=== PATIENT | female | born 1990 | race Caucasian/White ===

== ENCOUNTER 2017-06-25 00:32 | Inpatient (IN) ==
[~2017-06-25 00:32] MED LIST: Famotidine 20 MG/2 ML VIAL IVP PRN; Naloxone 0.4 MG/ML INJ IVP PRN
--- NOTE | 2017-06-25 01:10 | OB/GYN History & Physical ---
Date of Encounter: 06/25/17 Time of Encounter: 01:03 Assessment and Plan (1) 38 weeks gestation of Current visit: Yes Status: Acute at 38w 2d EGA with SROM at 2330 on 06/24/17 Cervical check /-2 per RN. FHT reassuring. No contractions currently Start PO cytotec 50 mcg for induction (2) SROM (spontaneous rupture of membranes) Current visit: Yes Status: Acute Induction of labor History of Present Illness Chief complaint: 38 2/7 week gestation HPI: Ms. Smith is a 26 year old female at 38w 2d EGA presenting to L&D with SROM. She reports a gush of clear fluid at 2330 on 06/24/17. She reports +FM. She denies having contractions. Admits to mild LE edema. Denies headaches, blurred vision, epigastric/RUQ pain, vaginal bleeding, or dysuria. No complications during . Blood type O+ GBS negative Rubella Immune Varicella Immune Hep B negative HIV negative [place]/Chl negative Past Med Surg Social Fam HX - Past Medical History Medical history: no medical history Psychiatric history: no psych history - Past Surgical History Surgical History: other - Social History Smoking Status: Never smoker Alcohol use: none Drug use: none - Family History Mother Hx Family Cardiac Disorders: No Hx Family Respiratory Disorders: No Hx Family Cancer: No Hx Family GI Disorders: No Hx Family Genitourinary Disorders: No Hx Family Endocrine Disorder: No Hx Family Musculoskeletal Disorders: No Hx Family Neuromuscular Disorders: No Hx Family Neurologic Disorders: No Hx Family HEENT Disorders: No Hx Family Autoimmune Disorders: No Hx Family Reproductive Disorders: No Hx Family Psychosocial Disorders: No Hx Family Medical Disorders: No (no history reported) Obstetrical History - Pregnancies : 1 - History/Complications History/Complications: None Medications and Allergies Colace 06/25/17 [History] Tablet 06/25/17 [History] 3 Allergy/AdvReac Type Severity Reaction Status Date / Time Amoxicillin Allergy Hives Verified 06/25/17 01:31 Review of System OB All systems PM: reviewed and no additional remarkable complaints except as stated Exam - Constitutional Constitutional: well developed, well nourished, no acute distress, average body habitus - HEENT HEENT: Normocephaly, Mucus Membranes Moist - Lungs Respiratory exam: CTAB - Cardiovascular Cardiovascular exam: RRR, +S1, +S2 - Abdomen Abdomen: Present: bowel sounds normal, gravid, non tender - Extremities Extremities exam: pedal edema (mild bilaterally) - Vulva Vulva: bilateral: normal - Cervix Cervix: Absent: lesion Dilation: 1 Effacement: 50 Station: -2 (per RN) - Comments Comments: FHT baseline 130's with moderate variability Results Result Diagrams: 06/25/17 01:10 All other labs normal. - VTE Reasons for not Prescribing Prophylaxis: Treatment not Indicated - Low risk for VTE - Attending Attestation I examined this patient and my medical decision-making was reviewed with the Resident Physician. I agree with the documented findings, disposition and treatment plan as described except to the extent set forth below.
[2017-06-25 01:23] LABS: Basophils % 0.3 %; Eosinophils # 0.2 K/mcL (0.0-0.6); Eosinophils % 1.5 %; Hematocrit 38.9 % (35.3-44.9); Hemoglobin 13.5 g/dL (11.5-15.4); Immature Granulocytes % 1.5 % (0-4); Lymphocytes # 1.6 K/mcL (0.6-4.6); Lymphocytes % 11.8 %; Mean Corpuscular HGB Conc 34.7 g/dL (31.6-35.5); Mean Corpuscular Hemoglobin 30.1 pg (28.0-33.3); Mean Corpuscular Volume 86.6 fL (83.0-100.0); Mean Platelet Volume 11.9 fL (9.4-12.4); Monocytes % 7.4 %; Neutrophils # 10.6 K/mcL (1.6-8.9); Platelet Count 136 K/mcL (140-400); Red Blood Count 4.49 M/mcL (3.82-4.97); Red Cell Distribution Width 13.8 % (11.5-14.5); Segmented Neutrophils % 77.5 %
[2017-06-25] MEDS ORDERED: miSOPROStol 100 MCG TABLET PO STA (02:05)
[2017-06-25] MEDS: Ringers Solution, Lactated 1,000 ML IVC SCH ×3 (02:44→14:19)
--- NOTE | 2017-06-25 05:45 | OB Labor Progress Note ---
Date of Encounter: 06/25/17 Time of Encounter: 05:43 Labor Progress Note - Subjective Subjective: Pt doing well. Reporting more pain with contractions now. I examined this patient and my medical decision-making was reviewed with the Resident Physician. I agree with the documented findings, disposition and treatment plan as described except to the extent set forth below. - Cervix Cervix: 3/100/-1 per RN - Heart Tones Heart Tones: Baseline 130's with moderate variability - [place]: CTX Q2-3 minutes - Plan Plan: Continue current management One dose of cytotec at 0215 Expect to start pitocin soon
--- NOTE | 2017-06-25 06:42 | Anesthesia Evaluation PreOp ---
Date of Encounter: 06/25/17 Time of Encounter: 06:41 - Past History Planned Operation: ann Cardiac History: Denies any Significant Hx Pulmonary History: Denies Any Significant HX OCEANOGRAPHY TEACHER History: Denies Any Significant HX Other Medical History: GERD Anesthesia History: No Prior Anesthetic Complications (no surgical history except wisdom teeth, no family history of anesthetic complications) : Yes (38, g1) Alcohol Use: none Drug use: none Medications and Allergies Colace 06/25/17 [History] Tablet 06/25/17 [History] 3 Allergy/AdvReac Type Severity Reaction Status Date / Time Amoxicillin Allergy Hives Verified 06/25/17 01:31 - Meds/Allergy Pre-op Review Medications Reviewed: Yes Allergies Reviewed: Yes Beta Blockers on Current Med List: No Anesthesia Results - Labs 06/25/17 01:10 Anesthesia Exam O2 Sat Height 1.6 m Height 1.6 m Weight 72.8 kg Weight 72.8 kg Height: 63 Weight: 72 - HEENT Pupil (Motor): Pupils equal Mallampati: II Teeth: Normal Oral Opening: Greater than 3 - OCEANOGRAPHY TEACHER LOC: Oriented OCEANOGRAPHY TEACHER Motor: Normal RUE, Normal LUE, Normal RLE, Normal LLE, Normal Face OCEANOGRAPHY TEACHER Sensory: Normal: RUE, LUE, RLE, LLE, Face - Cardiac Rhythm: Regular Murmur: None JVD: No Carotid Bruit: No - Pulmonary Breath Sounds: bilateral Clear Respiratory Effort: Symmetrical Anesthesia Assess/Plan ASA Score: 2 Modified Shanon Scale for Level of Consciousness: Cooperative, oriented, and tranquil Anesthetic Plan: Regional Monitoring Plan: Standard Monitors
[2017-06-25] MEDS ORDERED: Epidural Premix (fent/bupiv) 110 ML EP ONE ×3 (06:51→20:30)
[2017-06-25] MEDS ORDERED: EPHEDrine 50 MG/ML VIAL IVP PRN (06:56)
[2017-06-25] MEDS ORDERED: Epidural Premix (fent/bupiv) 110 ML EP SCH (07:00)
[2017-06-25] MEDS ORDERED: Oxytocin 20 units/ LR 1000 mL 20 UNIT/1,000 ML BAG IVC SCH ×2 (10:00→22:00)
--- NOTE | 2017-06-25 11:28 | OB Labor Progress Note ---
Date of Encounter: 06/25/17 Time of Encounter: 11:25 Labor Progress Note - Subjective Subjective: patient is comfortable s/p epidural - Vital Signs Vital Signs: VSS - Cervix Cervix: 8cm/100% - Heart Tones Heart Tones: CAT 1 - Plan Plan: cont pitocin, anticipate
--- NOTE | 2017-06-25 12:51 | Anesthesia Procedures ---
Date of Encounter: 06/25/17 Time of Encounter: 07:04 Procedures: Anesthesia - Epidural/Spinal Patient ID/Chart reviewed: Yes Patient examined: Yes OB Eval: Gestational age: term OB Eval: : 1 OB Eval: Dilated at (cm): 6 OB Eval: Contractions: Non-stressed pattern Consent Obtained: Yes Site Prep: Aseptic Technique, Sterile prep and drape, 0.5% Chlorhexidine/Alcohol Patient position: upright Local Anesthetic: Lidocaine 1% Amount of Local Anesthetic used: 2 Touhy Needle Gauge: 18 Touhy Needle Depth (cm): 5 Catheter Depth at Skin (cm): 9 Test Dose (1.5% Lido + Epi): Volume given (mls): 3 Test Dose Result: Negative Loading Dose: Other: 12ml from solution Loading Dose Administered: Thru Catheter Infusion Med: 0.125% Bupivacaine w/ 2 mcg/ml Fentanyl Infusion Rate (mls/hr): [address]: Tegaderm, Tape Interspace Used: L3-L4 Loss of Resistance (MARILYN): Yes (saline) Blood: No CSF: No Paresthesia: No Procedure: vss though out, FHR stable per RN's
--- NOTE | 2017-06-25 15:19 | OB Labor Progress Note ---
Date of Encounter: 06/25/17 Time of Encounter: 15:15 Labor Progress Note - Subjective Subjective: patient comfortable and doing well - Vital Signs Vital Signs: VSS - Cervix Cervix: fully dilated - Heart Tones Heart Tones: FHT CAT 1 - Plan Plan: cont to monitor labor, anticipate
--- NOTE | 2017-06-25 21:43 | OB/GYN Procedure Note ---
Delivery - Delivery Date: 06/25/17 Provider: Janes Parsons Intrapartum events: none Delivery augmentation: pitocin Delivery monitor: external FHT, external uterine Anesthesia: epidural Estimated Blood Loss: 150 - (s) A Delivery Date: 06/25/17 Delivery Time: 21:09 Presentation: vertex Position: OA Gender: Male Viability: Viable Pounds: 7 Ounces: 2 Weight Gram: 3.25 kg at 1 minute: 8 at 5 mins: 9 Shoulder Dystocia: not encountered Specimens collected: cord blood Placenta: spontaneous Cord: 3 umbilical vessels - Repair Episiotomy: none Laceration Description: Perineal - 2nd Degree - Complications Delivery complications: none - Disposition Mom disposition: stable in LDR Hardy disposition: stable in LDR - Comments Comments: 26 y/o now @ 38+2 weeks delivered a viable male infant @ 2109hrs. Infant delivered OA, no nuchal cord, 3 VC, APGARs 8/9, cord clamped and cut with infant handed over to nurses. Placenta delivered @ 2hrs. EBL 150. 2nd degree laceration repaired with 3-0 vicryl. Mother and doing well.
[2017-06-25] MEDS: Ibuprofen 600 MG TABLET PO PRN (23:51)
[2017-06-26 05:34] LABS: Basophils % 0.2 %; Eosinophils # 0.2 K/mcL (0.0-0.6); Eosinophils % 0.9 %; Hematocrit 28.7 % (35.3-44.9); Immature Granulocytes % 1.1 % (0-4); Lymphocytes # 1.7 K/mcL (0.6-4.6); Lymphocytes % 9.9 %; Mean Corpuscular HGB Conc 34.5 g/dL (31.6-35.5); Mean Corpuscular Hemoglobin 30.2 pg (28.0-33.3); Mean Corpuscular Volume 87.5 fL (83.0-100.0); Mean Platelet Volume 11.3 fL (9.4-12.4); Monocytes # 1.5 K/mcL (0.0-1.3); Monocytes % 8.5 %; Neutrophils # 13.6 K/mcL (1.6-8.9); Platelet Count 114 K/mcL (140-400); Red Blood Count 3.28 M/mcL (3.82-4.97); Segmented Neutrophils % 79.4 %
[2017-06-26 05:37] LABS: Hemoglobin 9.9 g/dL (11.5-15.4)
[2017-06-26] MEDS: Ibuprofen 600 MG TABLET PO PRN ×3 (07:52→21:27)
[2017-06-26] MEDS: Prenatal Vit/FA 1 EACH TABLET PO SCH (07:52)
--- NOTE | 2017-06-26 08:15 | OB/GYN Progress Note ---
Date of Encounter: 06/26/17 Time of Encounter: 08:05 - Assessment and Plan (1) Normal vaginal delivery of first Current Visit: Yes Status: Acute Patient had of viable male at 38+2 GA on 06/25. Uncomplicated with 2nd degree tear repaired. (2) Weakness of left lower extremity Current Visit: Yes Status: Acute Patient is c/o residual LLE weakness that seems to be improving, the weakness causes her difficulty with ambulation. Patient will be seen by MOUSTAPHA Ochoa this afternoon. (3) Low hemoglobin Current Visit: Yes Status: Acute VSS, asymptomatic. Will start Ferrous Sulfate Discharge home with ferrous sulfate. Subjective - Subjective Principal diagnosis: ; LLE weakness Interval history: Ms. Smith is a 26F admitted on 06/25/2017 at 38+2 EGA with SROM on 2016. Patient of Dr. Rae. Patient received an epidural. Delivered a viable male on 06/[address] Parsons at 21:09. Uncomplicated delivery with 2nd degree tear repaired with 3-0 vicryl. The patient states she if feeling well today, she is having some left lower extremity weakness. Patient states she has positive movement and sensation in the leg, it is mainly when she ambulates to the restroom that she needs assistance and feels the leg give out. Patient has been tolerating PO, no difficulty urinating, vaginal bleeding has improved, and patient is currently breast feeding. Patient reports: appetite normal, voiding normally, pain well controlled, no appetite poor, no ambulating normally, no nauseated Exline: doing well Objective - Latest Vital Signs Latest vital signs: Vital Signs Temp Pulse Resp BP Pulse Ox 06/26/17 07:20 98.4 F 92 16 120/81 06/26/17 05:40 98.5 F 97 20 116/86 99 06/26/17 01:30 98.9 F 99 20 104/69 98 06/26/17 00:30 98.3 F 111 14 109/69 98 06/25/17 23:30 98.4 F 110 16 111/76 99 Intake and Output 06/25/17 06/26/17 06/26/17 23:59 07:59 15:59 Intake Total 300 / 300 520 / 520 Output Total 1550 / 1550 960 / 960 Balance -1250 / -1250 -440 / -440 Intake: Oral 300 / 300 520 / 520 Output: Urine 0 / 0 960 / 960 Estimated Blood Loss 150 / 150 Catheter 1400 / 1400 Other: Weight 70.352 kg - Exam Lungs: bilateral: normal Chest: Normal S1, Normal S2 Extremities: Present: normal, other (5/5 strength in flexion and extension of the LLE. Good sensation. +2/2 dorsalis pedis and posterior tibialis pulses.). Absent: tenderness Abdomen: Present: normal appearance (normal bowel sounds in all quadrants), soft. Absent: distention, tenderness Uterus: Present: normal. Absent: tenderness Uterus Position: Midline Comments: Patient reports a good mood, denies any depression as this time. - Labs Labs: Laboratory Results - last 24 hr 06/26/17 05:20 WBC 17.1 H RBC 3.28 L Hgb 9.9 L D Hct 28.7 L MCV 87.5 MCH 30.2 MCHC 34.5 RDW 14.0 Plt Count 114 L MPV 11.3 Immature Gran % 1.1 Seg Neutrophils % 79.4 Lymphocytes % 9.9 Monocytes % 8.5 Eosinophils % 0.9 Basophils % 0.2 Neutrophils # 13.6 H Lymphocytes # 1.7 Monocytes # 1.5 H Eosinophils # 0.2 Basophils # 0.0 Attestation Statement - Attestation Attestation: I examined this patient and my medical decision-making was reviewed with the Resident Physician. I agree with the documented findings, disposition and treatment plan as described. Patrica Mcdowell CNM
[2017-06-27 07:43] VITALS: BP 105/69
--- NOTE | 2017-06-27 08:53 | Discharge Summary ---
Date of Encounter: 06/27/17 Time of Encounter: 08:51 - Discharge Diagnosis (1) Normal vaginal delivery of first Priority: Primary Status: Acute Comments: Continue routine care discharge home today follow up in 4-6 weeks with primary OB provider (2) Weakness of left lower extremity Priority: Secondary Status: Acute Comments: Patient up ambulating Discussed Patient with Dr. Gay. Dr. Gay reports patient is most likely experiencing femoral neuropathy from positioning for long period of time during delivery. Dr. Gay reports patient should follow up with him in 1 week if no change. Discussed POC with patient including child care coordinator. Patient denies any questions or concerns. (3) Second degree perineal laceration during delivery Priority: Secondary Status: Acute Comments: Continue Colace daily sitz bath prn (4) Breast feeding status of mother Priority: Secondary Status: Acute Comments: support prn - Discharge Medications Prescriptions: Ibuprofen [Motrin] 600 mg PO Q6HR PRN #60 tablet PRN Reason: Cramping Breast Pump [BREAST PUMP] 1 each .ROUTE AD #1 each Docusate [Colace] 100 mg PO BID #60 capsule Home Medications: Tablet 06/25/17 [History] Breast Pump [BREAST PUMP] 1 each .ROUTE AD #1 each 06/27/17 [Rx] Docusate [Colace] 100 mg PO BID #60 capsule 06/27/17 [Rx] Ibuprofen [Motrin] 600 mg PO Q6HR PRN #60 tablet 06/27/17 [Rx] Vit/FA 1 each PO DAILY tablet 06/27/17 [Rx] Allergies/Adverse Reactions: 3 Allergy/AdvReac Type Severity Reaction Status Date / Time Amoxicillin Allergy Hives Verified 06/25/17 01:31 Data Procedures and tests throughout hospitalization: Laboratory Tests 06/25/17 06/26/17 01:10 05:20 WBC 13.7 H 17.1 H RBC 4.49 3.28 L Hgb 13.5 9.9 L D Hct 38.9 28.7 L MCV 86.6 87.5 MCH 30.1 30.2 MCHC 34.7 34.5 RDW 13.8 14.0 Plt Count 136 L 114 L MPV 11.9 11.3 Immature Gran % 1.5 1.1 Seg Neutrophils % 77.5 79.4 Lymphocytes % 11.8 9.9 Monocytes % 7.4 8.5 Eosinophils % 1.5 0.9 Basophils % 0.3 0.2 Neutrophils # 10.6 H 13.6 H Lymphocytes # 1.6 1.7 Monocytes # 1.0 1.5 H Eosinophils # 0.2 0.2 Basophils # 0.0 0.0 Date of admission: 06/25/17 00:32 Primary care physician: Kaiden Labmert, Consults: 06/25/17 21:47 Consult to Jackhammer Operator [CONS] Routine Comment: Vaginal delivery, consult needed Discharging clinician: Kiley Castro Anticipated date of discharge: 06/27/17 - Patient Status Disposition: Home, Self-Care Condition: Good Functional capacity at discharge: independent ambulation - Discharge Instructions Follow Up With: Kaiden Lambert DO [Primary Care Provider] - Aneta Rae DO [Partnered Physician] - - Diet and Activity Activity: increase activity as tolerated Diet: regular diet Hospital Course Reason for admission: rupture of membranes Delivery: Episiotomy: none Laceration: 2nd degree Other procedures: none complications: none Discharge diagnosis: IUP at term delivered baby: male (breast feeding) Time Attestation: Total time spent providing and/or coordinating discharge services: Time Spent: Less than 30 minutes Exam - Constitutional Vitals: Temp Pulse Resp BP Pulse Ox 98.4 F 90 16 105/69 99 06/27/17 07:25 06/27/17 07:25 06/27/17 07:25 06/27/17 07:25 06/26/17 21:10 General appearance IM: A&O X 3, pleasant, answers questions appropriately - Respiratory Respiratory exam: Present: CTAB - Cardiovascular Cardiovascular exam IM: Present: RRR, +S1, +S2 - GI/Abdominal GI/Abdominal exam IM: normal bowel sounds - Uterine Tone: Firm Uterus Position: 1 Finger Below Umbilicus, Midline - Neurological Exam Neurological exam: alert, oriented X3, reflexes normal, strengths equal and symetr throughout Additional comments: strength equal bilateral lower extremities, no weakness noted in upper extremities
[2017-06-27] MEDS: Prenatal Vit/FA 1 EACH TABLET PO SCH (08:55)
[2017-06-27] MEDS: Ibuprofen 600 MG TABLET PO PRN (08:55)
[2017-06-27] MEDS ORDERED: Benzocaine/Menthol 56 GM AEROSOL SPRAY TP PRN (09:16)
== END 2017-06-27 11:23 | disposition home or self-care (01) | DRG 775 ==
LOC: 1NENULAB → 1NENUOBS 23:03
PROVIDERS: ADMIT Obstetrics & Gynecology; ATTEND Obstetrics & Gynecology